=== PATIENT | female | born 1940 | race Caucasian/White ===

== ENCOUNTER 2018-04-05 14:15 | Inpatient (IN) | payer MEDICARE, BC ==
[~2018-04-05] VITALS: Ht 167.6 cm; Wt 54.0 kg
[~2018-04-05 14:15] MED LIST: PREG200C PO; SILV20CR13 TP; TRAM50TA2 PO
--- NOTE | 2018-04-05 14:20 | NUR ---
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 ALERT AND RESPOSIVE TO TACTILE STIMULI. BREATHING EVEN AND UNLABORED WITH NO SOB NOTED. SKIN WARM TO TOUCH AND INTACT. AWAITING TO BE SEEN BY
[2018-04-05] MEDS ORDERED: CALC-7 PO (14:44)
[2018-04-05] MEDS ORDERED: MAGN400O6 PO (14:44)
[2018-04-05] MEDS ORDERED: ASCO250T5 PO (14:44)
[2018-04-05] MEDS ORDERED: MULT-447 PO (14:44)
[2018-04-05] MEDS ORDERED: MIRT15TA7 PO (14:44)
[2018-04-05] MEDS ORDERED: AMIN30LI27 PO (14:44)
[2018-04-05] MEDS ORDERED: DIVA250T4 PO (14:44)
[2018-04-05] MEDS ORDERED: ALBU2.5V38 IH (14:44)
[2018-04-05] MEDS ORDERED: ACET-868 PO ×2 (14:44)
[2018-04-05] MEDS ORDERED: GUAI5SYR PO (14:44)
[2018-04-05 14:45] LABS: BASOPHILS # (AUTO) 0.1 /CMM (0.0-0.2); BASOPHILS % (AUTO) 1.6 % (0.0-2.0); EOSINOPHILS % (AUTO) 6.5 % (0.0-6.0); HEMATOCRIT 34 % (33-45); HEMOGLOBIN 12.2 g/dL (11.5-14.8); LYMPHOCYTES # (AUTO) 1.9 /CMM (0.8-4.8); LYMPHOCYTES % (AUTO) 34.1 % (20.0-44.0); MEAN CORPUSCULAR HGB CONC 36 g/dl (31.0-36.0); MEAN CORPUSCULAR VOLUME 94 fL (82-100); MONOCYTES # (AUTO) 0.8 /CMM (0.1-1.30); MONOCYTES % (AUTO) 13.7 % (2.0-12.0); NEUTROPHILS # (AUTO) 2.5 /CMM (1.8-8.9); NEUTROPHILS % (AUTO) 44.1 % (43.0-81.0); PLATELET COUNT (AUTO) 112 /CMM (150-450); WHITE BLOOD COUNT (AUTO) 5.7 K/uL (4.3-11.0)
[2018-04-05 14:51] LABS: CALCIUM, SERUM 8.9 mg/dL (8.5-10.1); CARBON DIOXIDE 30 mmol/L (21-32); CHLORIDE 108 mmol/L (98-107); CREATININE 0.7 mg/dL (0.6-1.3); GLUCOSE 109 mg/dL (74-106); POTASSIUM 4.1 mmol/L (3.5-5.1); SODIUM SERUM 145 mmol/L (136-145); UREA NITROGEN, BLOOD 27 mg/dL (7-18)
[2018-04-05 14:58] LABS: SERUM AMMONIA 20 umol/L (11-32)
[2018-04-05 14:59] LABS: APPEARANCE,URINE Slightly Cloudy (CLEAR); BILIRUBIN,URINE Negative (NEGATIVE); BLOOD, URINE Moderate Ery/uL (NEGATIVE); COLOR,URINE Yellow (YELLOW); KETONES,URINE Negative (NEGATIVE); LEUKOCYTE ESTERASE ,URINE Small (NEGATIVE); NITRITE, URINE Positive (NEGATIVE); PH,URINE 6.5 (5.0-8.0); PROTEIN,URINE Negative (NEGATIVE); UGLUCOSE Negative (NEGATIVE); UROBILINOGEN,URINE 0.2 EU/dL (0.2)
[2018-04-05] MEDS ORDERED: IV NS 0.9% 1,000 ML BAG IV ONE (15:00)
[2018-04-05 15:04] LABS: ALANINE AMINOTRANSFERASE 18 U/L (12-78); ALBUMIN 3.1 g/dL (3.4-5.0); ALKALINE PHOSPHATASE 102 U/L (46-116); ASPARTATE AMINOTRANSFERASE 12 U/L (15-37); BILIRUBIN,TOTAL 0.2 mg/dL (0.2-1.0); SALICYLATE 1.4 mg/dL (2.8-20.0); TOTAL PROTEIN, SERUM 6.6 g/dL (6.4-8.2)
[2018-04-05 15:12] LABS: BACTERIA,URINE Moderate /HPF (None Seen); RBC,URINE 20-50 /HPF (0-2); SQUAMOUS EPITHELIAL CELL,UR Few /HPF (None Seen)
[2018-04-05 15:13] LABS: WBC,URINE 20-50 /HPF (0-3)
[2018-04-05 15:14] LABS: ACETAMINOPHEN 2 ug/ml (10-30)
[2018-04-05 15:18] LABS: THYROID STIMULATING HORMONE 5.946 uIU/mL (0.358-3.74)
--- NOTE | 2018-04-05 15:45 | NUR ---
FINAL CIGAR AND BOX EXAMINER AT BEDSIDE TO TAKE PATIENT FOR CT SCAN
[2018-04-05] MEDS ORDERED: CEFTRIAXONE 1GM BAG (ER ONLY) 50 ML IV ONE ×2 (16:30→16:34)
--- NOTE | 2018-04-05 16:55 | NUR ---
DR BOWERS/ON-CALL PAGED
--- NOTE | 2018-04-05 17:16 | NUR ---
PATEINT WILL BE TRANSFERRED TO 327-1 REPORT GIVEN TO ANNABELLE FOR ASA
--- NOTE | 2018-04-05 17:41 | NUR ---
ADMISSION NOTE PT WAS RECEIVED AT THE FLOOR AT THIS, CAREGIVER PRESENT AT BEDSIDE, A/O X1, NON-AMBULATORY, GRINDS TEETH, SAFETY PRECAUTIONS IN PLACE, CALL LIGHT WITHIN REACH, WILL MONITOR ACCORDINGLY
--- NOTE | 2018-04-05 18:36 | NUR ---
RN CLOSING NOTES PT IN BED AT LOWEST AND LOCKED POSITION WITH SIDE RAILS UP X2, A/O X1 SPEECH IS UNCLEAR, BREATHING EVEN AND UNLABORED ON RA, NO S/S OF PAIN OR DISTRESS CURRENTLY NOTED, CAREGIVER PRESENT AT BEDSIDE, IV IS PATENT AND INTACT, SAFETY PRECAUTIONS IN PLACE, CALL LIGHT WITHIN REACH, WILL ENDORSE TO ONCOMING BUILDING COMPONENTS DESIGNER RN FOR ASA.
[2018-04-05] MEDS ORDERED: IV D5/0.45 NACL 1,000 ML IV ONE (19:00)
[2018-04-05] MEDS ORDERED: ACETAMINOPHEN 325 MG TABLET PO SCH (19:30)
[2018-04-05] MEDS: PROSTAT (PYXIS) 30 ML UDC PO SCH (19:30)
[2018-04-05] MEDS ORDERED: ALBUTEROL FS 2.5 MG/0.5 ML VIAL.NEB NEB PRN (19:30)
[2018-04-05] MEDS ORDERED: ACETAMINOPHEN 325 MG TABLET PO PRN (19:30)
[2018-04-05] MEDS ORDERED: GUAIFENESIN/D-METHORPHAN HB 5 ML UDC PO PRN (19:30)
[2018-04-05] MEDS ORDERED: MAGNESIUM HYDROXIDE 30 ML UDC PO PRN (19:30)
[2018-04-05 20:00] VITALS: BP 145/73
--- NOTE | 2018-04-05 20:00 | NUR ---
TELE/RN OPENING NOTES RECEIVED PATIENT IN BED, CAN OPEN EYES BUT WITH NO GOOD EYE CONTACT, PATIENT OBSERVED GRINDING TEETH, MAKING LOUD NOISES, BUT ABLE TO STAY IN BED , CAREGIVER AT BEDSIDE. RESPIRATIONS IN ROOM AIR , BREATHING EVEN AND UNLABORED.RECEIVED ENDORSEMENT FROM AM RN FOR ASA, A NEW ADMITTED PATIETN OF DR ENRIQUE , [facility], AND WITH DX OF UTI, PATIENT WAS REPORTED TO RECEIVE NARCAN UPON ADMISSION. HX OF ENCEPHALOPATHY, PSYCH UNSPECIFIED, ,INCONTINENT, REQUIRE ASSISTANCE AT ALL TIMES FOR ALL ADLS. MD WAS CONTACTED FOR ORDERAND TO CONTINUE HOME MEDS AND DIET, BLOOD PRESSURE RECHECK AT 145/73, RECEIVED ORDER BY AM RN FROM DUE TO LOW SBP LESS THAN 90 UPON ADMISSION WITH ORDER OF D5 1/2 NS AT 75 ML/HR, WILL MONITOR. BELONGINGS CHECK, SKIN CHECK AND WITH PERINEAL REDNESS,TO TAKE PHOTO ONCE PATIENT ALLOWED. WILL MONITOR.CALL LIGHTS WITHIN REACH, BED LOCKED.
[2018-04-05] MEDS ORDERED: DIVALPROEX SODIUM 250 MG TABLET.DR PO SCH (21:00)
[2018-04-05] MEDS ORDERED: MIRTAZAPINE 15 MG TABLET PO SCH (22:00)
[2018-04-06] VITALS (7 sets, daily range): BP systolic 102–144; BP diastolic 55–88
--- NOTE | 2018-04-06 06:22 | NUR ---
327-2 TELE/RN NOTES PATIENT RESPIRATIONS EVEN AND UNLABORED, NO GRIMACE OR GUARDING, OBSERVED ABLE TO SLEEP ATLEAST 6 HOURS. SKIN WARM TO TOUCH, OBSERVE GRIND TEETH AND REQUIRE ASSISTANCE IN ALL ADLS.ALERT X1, CAN OPEN EYES, ABLE TO PARTICIPATE. WITH NEED FOR REORIENTATION. BED LOCKED. CALLLIGHTS WITHIN REACH.
--- NOTE | 2018-04-06 08:00 | NUR ---
RN NOTES PATIENT SEEN IN THE BED TOTAL CARE, REFUSED TO OPEN EYES, SPEECH UNCLEAR, LUNGS ARE CLEAR DURING AUSCULTATION, UNLABORED, SCHEDULED MEDICATION ADMINISTERED CRUSHED WITH APPLE SAUCE, V/S STABLE, NEEDS ATTENDED AND ANTICIPATED. PATIENT INCONTINENT OF BOWL AND BLADER, PRIVET CARE GIVEN NEXT TO THE BED FOR SAFETY, ASSIST TURN AND REPOSTION Q 2 HR. ASSIST EATING. SAFETY PRECAUTION MAINTAIN KALYAN ALL THE TIME.
[2018-04-06] MEDS: CALCIUM CARB 250MG /VITAMIN D 1 UDTAB PO SCH (09:03)
[2018-04-06] MEDS: DIVALPROEX SODIUM 125 MG CAP.SPRINK PO SCH ×4 (09:04→21:42)
[2018-04-06] MEDS: PROSTAT (PYXIS) 30 ML UDC PO SCH ×2 (09:05→17:08)
[2018-04-06] MEDS ORDERED: Z GUARD REMEDY 2 OZ OINT TP PRN (11:30)
--- NOTE | 2018-04-06 12:59 | NUR ---
RN NOTES PATIENT IN THE BED ASSIST EATING BY PRIVET CARE GIVEN, NO ACUTE RESPIRATORY DISTRESS, PATIENT ANXIOUS, GRINDING TEETHE. SEE BY DR BOWERS, NO NEW ORDERS AT THIS TIME, CONTINUED MONITORING.
--- NOTE | 2018-04-06 15:01 | NUR ---
RN NOTES GET CALL FROM LAB PATIENT MRSA OF [facility]. CALLED FOR ISOLATION CARED. DR BOWERS NOTIFIED, TO ORDER TAKEN AND CARRIED OUT. CONTINUED MONITORING.
[2018-04-06] MEDS ORDERED: CEFTRIAXONE 2 G in IV D5W 100 ML IV SCH (17:00)
[2018-04-06] MEDS: MUPIROCIN OINT 2% 22 GM TUBE SCH ×2 (17:05→21:57)
--- NOTE | 2018-04-06 18:30 | NUR ---
RN NOTES PATIENT STABLE, NO ACUTE RESPIRATORY DISTRESS, NO SOB. PATIENT EASILY AGITATED, STILL GRINDING TEATS. ASSIST EATING WITH CARE GIVEN, PATIENT TOLERATED FOOD WELL. SCHEDULED MEDICATION ADMINISTERED, V/S STABLE, PATIENT HAS NO ACUTE RESPIRATORY DISTRESS, ASSIST TURN AND REPOSTION Q 2 HR. ENDORSED ONCOMING NURSE FOR PLAN OF CARE.
[2018-04-06] MEDS ORDERED: QUETIAPINE FUMARATE 25 MG TABLET PO PRN (19:30)
--- NOTE | 2018-04-06 19:45 | NUR ---
RN NOTES RECEIVED PATIENT ASLEEP IN BED, NO ACUTE RESPIRATORY DISTRESS, NO SOB NOTED. PATIENT EASILY AGITATED, CAREGIVER AT BEDSIDE, ALL SAFETY MEASURES OBSERVED, BED IN LOW LOCK POSITION, ASPIRATION PRECAUTION MAINTAINED, ALL NEEDS ATTENDED, INSTRUCTED UNCRATER TO REPOSITION PATIENT EVERY 2 HOURS AND NEEDED, AND ASK FOR HELP WHEN, NEEDED. WILL MONITOR ACCORDINGLY.
[2018-04-06] MEDS: MIRTAZAPINE 15 MG TABLET PO SCH (21:40)
--- NOTE | 2018-04-07 06:08 | NUR ---
RN NOTES ALL NEEDS ATTENDED AND MET, CAREGIVER AT BEDSIDE, PATIENT REMAINED CALM THROUGHOUT THE SHIFT, ABLE TO REST AND SLEEP WITH LONG INTERVALS, NO SIGNS OF ACUTE DISTRESS NOTED, WILL ENDORSE TO AM NURSE FOR CONTINUITY OF CARE.
--- NOTE | 2018-04-07 07:26 | NUR ---
RN OPENING NOTE PATIENT WAS RECEIVED IN BED AT LOWEST AND LOCKED POSITION WITH SIDE RAILS UP X2, A/O X1, NOTED TO GRIND HER TEETH ON OCCASION, BREATHING EVEN AND UNLABORED ON RA, NO S/S OF PAIN OR DISTRESS NOTED, IV IS PATENT AND INTACT, CAREGIVER PRESENT AT BEDSIDE, , SAFETY PRECAUTIONS IN PLACE, CALL LIGHT WITHIN REACH, WILL MONITOR ACCORDINGLY
[2018-04-07 08:00] VITALS: BP 104/54
[2018-04-07] MEDS: CALCIUM CARB 250MG /VITAMIN D 1 UDTAB PO SCH (08:54)
[2018-04-07] MEDS: MUPIROCIN OINT 2% 22 GM TUBE SCH ×2 (08:55→22:03)
[2018-04-07] MEDS: PROSTAT (PYXIS) 30 ML UDC PO SCH ×2 (08:55→16:11)
[2018-04-07] MEDS: DIVALPROEX SODIUM 125 MG CAP.SPRINK PO SCH ×3 (08:55→22:02)
[2018-04-07] MEDS ORDERED: MEROPENEM 1 G in IV NS 0.9% 100 ML IV ONE (15:00)
[2018-04-07 16:00] VITALS: BP 91/52
--- NOTE | 2018-04-07 18:42 | NUR ---
RN CLOSING NOTE PATIENT IN BED AT LOWEST AND LOCKED POSITION WITH SIDE RAILS UP X2, A/O X1, NOTED TO GRIND HER TEETH ON OCCASION, BREATHING EVEN AND UNLABORED ON RA, NO S/S OF PAIN OR DISTRESS NOTED, IV IS PATENT AND INTACT, CAREGIVER PRESENT AT BEDSIDE, , SAFETY PRECAUTIONS IN PLACE, CALL LIGHT WITHIN REACH, ALL NEEDS ATTENDED TO, WILL ENDORSE TO PRE OWNED SALES CONSULTANT RN FOR ASA.
--- NOTE | 2018-04-07 19:55 | NUR ---
RN NOTES RECEIVED PATIENT ASLEEP IN BED, NO ACUTE RESPIRATORY DISTRESS, NO SOB NOTED. PATIENT EASILY AGITATED, CAREGIVER AT BEDSIDE, ALL SAFETY MEASURES OBSERVED, BED IN LOW LOCK POSITION, ASPIRATION PRECAUTION MAINTAINED, ALL NEEDS ATTENDED, INSTRUCTED MANAGER STORY TO REPOSITION PATIENT EVERY 2 HOURS AND NEEDED, AND ASK FOR HELP WHEN, NEEDED. WILL MONITOR ACCORDINGLY.
[2018-04-07 20:00] VITALS: BP 113/67
[2018-04-07 20:19] VITALS: BP 113/67
[2018-04-07] MEDS: MIRTAZAPINE 15 MG TABLET PO SCH (22:02)
[2018-04-07] MEDS: MEROPENEM 1 G in IV NS 0.9% 100 ML IV SCH (23:54)
--- NOTE | 2018-04-08 07:49 | NUR ---
MS RN OPENING NOTES RECEIVED PT IN BED, AWAKE, A/O X1. IN NO SIGNS OF PAIN OR DISTRESS AT THIS TIME. PRIVATE CAREGIVER PRESENT AT BEDSIDE. PT ON ROOM AIR, BREATHING EVEN AND UNLABORED NOTED. IVF NS AT 125ML/HR TO RFA G18, INTACT AND PATENT NO SIGNS OF INFILTRATION NOTED. SAFETY MEASURES OBSERVED; BED KEPT IN LOW AND LOCKED POSITION WITH SIDE RAILS UP X2. CALL LIGHT KEPT WITHIN REACH. WILL CONTINUE TO MONITOR.
[2018-04-08 08:00] VITALS: BP 134/65
[2018-04-08 08:05] LABS: BASOPHILS # (AUTO) 0.1 /CMM (0.0-0.2); BASOPHILS % (AUTO) 1.3 % (0.0-2.0); HEMATOCRIT 33 % (33-45); HEMOGLOBIN 11.3 g/dL (11.5-14.8); LYMPHOCYTES # (AUTO) 1.5 /CMM (0.8-4.8); LYMPHOCYTES % (AUTO) 31.8 % (20.0-44.0); MEAN CORPUSCULAR HGB CONC 34 g/dl (31.0-36.0); MEAN CORPUSCULAR VOLUME 93 fL (82-100); MONOCYTES # (AUTO) 0.6 /CMM (0.1-1.30); MONOCYTES % (AUTO) 13.4 % (2.0-12.0); NEUTROPHILS # (AUTO) 2.2 /CMM (1.8-8.9); NEUTROPHILS % (AUTO) 46.5 % (43.0-81.0); PLATELET COUNT (AUTO) 194 /CMM (150-450); RED BLOOD CELL COUNT(AUTO) 3.54 MIL/uL (4.0-5.2); WHITE BLOOD COUNT (AUTO) 4.8 K/uL (4.3-11.0)
[2018-04-08 08:07] LABS: ALANINE AMINOTRANSFERASE 17 U/L (12-78); ALBUMIN 3.1 g/dL (3.4-5.0); ALKALINE PHOSPHATASE 89 U/L (46-116); ASPARTATE AMINOTRANSFERASE 12 U/L (15-37); BILIRUBIN,TOTAL 0.2 mg/dL (0.2-1.0); CALCIUM, SERUM 8.7 mg/dL (8.5-10.1); CARBON DIOXIDE 26 mmol/L (21-32); CHLORIDE 106 mmol/L (98-107); CREATININE 0.8 mg/dL (0.6-1.3); GLUCOSE 101 mg/dL (74-106); MAGNESIUM 2.2 mg/dL (1.8-2.4); PHOSPHORUS 3.7 mg/dL (2.5-4.9); POTASSIUM 3.9 mmol/L (3.5-5.1); SODIUM SERUM 143 mmol/L (136-145); TOTAL PROTEIN, SERUM 6.2 g/dL (6.4-8.2); UREA NITROGEN, BLOOD 31 mg/dL (7-18)
[2018-04-08 08:10] LABS: THYROID STIMULATING HORMONE 6.498 uIU/mL (0.358-3.74)
[2018-04-08] MEDS: CALCIUM CARB 250MG /VITAMIN D 1 UDTAB PO SCH (08:32)
[2018-04-08] MEDS: DIVALPROEX SODIUM 125 MG CAP.SPRINK PO SCH ×2 (08:32→12:41)
[2018-04-08] MEDS: MUPIROCIN OINT 2% 22 GM TUBE SCH (08:34)
[2018-04-08] MEDS ORDERED: DIVA125C2 PO (09:00)
[2018-04-08] MEDS ORDERED: MUPI22OI7 (09:00)
[2018-04-08] MEDS ORDERED: MIRT15TA PO (09:00)
[2018-04-08] MEDS ORDERED: QUET25TA PO (09:00)
[2018-04-08] MEDS ORDERED: MERO1VIA IV (09:00)
[2018-04-08] MEDS ORDERED: PROSOURCE / PROSTAT (PYXIS) 30 ML UDC PO SCH (09:30)
[2018-04-08] MEDS: MEROPENEM 1 G in IV NS 0.9% 100 ML IV SCH (11:45)
--- NOTE | 2018-04-08 13:39 | NUR ---
RN NOTES PT [facility]. CALLED AND REPORT GIVEN TO NURSE DRY PAN OPERATOR MOLLY. PT'S CONSERVATOR CLAUDIA GARCIA CALLED AND INFORMED OF PT'S DISCHARGE TODAY.
--- NOTE | 2018-04-08 14:52 | NUR ---
PHOTOFLASH POWDER MIXER NOTES PT DISCHARGE TO [facility] IN STABLE CONDITION. A/O X1, CONFUSED. NO ACUTE SIGNS OF DISTRESS NOTED. VITAL SIGNS TAKEN AND RECORDED. PHOTOS OF SKIN CONDITION TAKEN AND FILED ON CHART. HEALTH TEACHINGS GIVEN TO PRIVATE CAREGIVER AND VERBALIZED UNDERSTANDING. PT IS UNABLE TO COMPREHEND DUE TO AMS AND DEMENTIA. ALL PT'S BELONGINGS BROUGHT HOME BY THE PRIVATE CAREGIVER; AND CAREGIVER SIGNED. PT LEFT UNIT AT 1430 ACCOMPANIED BY 2EMTS AND PRIVATE HOME CARE ADMINISTRATOR. ALL NEEDS AND CARE PROVIDED WELL.
== END 2018-04-08 14:45 | DRG 689 ==
LOC: ER 14:17 → TELE 17:03 → MED 04-06 08:55
PROVIDERS: ADMIT Internal Medicine; ATTEND Internal Medicine
DX: N39.0 Urinary tract infection, site not specified (principal); G92 Toxic encephalopathy; R53.2 Functional quadriplegia; F02.81 Dementia in other diseases classified elsewhere, unspecified severity, with behavioral disturbance; G30.9 Alzheimer's disease, unspecified; F39 Unspecified mood [affective] disorder; Z87.440 Personal history of urinary (tract) infections; Z87.01 Personal history of pneumonia (recurrent); Z91.81 History of falling; R62.7 Adult failure to thrive; L98.8 Other specified disorders of the skin and subcutaneous tissue; L89.620 Pressure ulcer of left heel, unstageable; L89.320 Pressure ulcer of left buttock, unstageable; F29 Unspecified psychosis not due to a substance or known physiological condition; Z74.01 Bed confinement status; E02 Subclinical iodine-deficiency hypothyroidism; B96.20 Unspecified Escherichia coli [E. coli] as the cause of diseases classified elsewhere; Z16.12 Extended spectrum beta lactamase (ESBL) resistance
CPT/HCPCS: 36415; 70450-TC; 71045-TC; 80048-TC; 80053-TC; 80076-TC; 80164-TC; 80305; 81000-TC; 82140-TC; 83605-TC; 83735-TC; 84100-TC; 84439-TC; 84443-TC; 84481; 84484-TC; 85025-TC; 85730-TC; 87040-TC; 87081-TC; 87086-TC; 87186-TC; A6253; A6403; G0378; G0480; J0696; J2185; J3490; J7030; J7060